=== PATIENT | male | born 1985 | race Caucasian/White ===

== ENCOUNTER 2017-12-12 11:29 | Emergency (ER) | payer SELFPAY ==
[2017-12-12 12:32] VITALS: BP 156/88
[2017-12-12] MEDS ORDERED: Bacitracin Oint 1 GM U/D Packet TOP ONE (13:14)
[2017-12-12] MEDS ORDERED: Lidocaine 1% 20 ML MDV INJECT ONE (13:14)
--- NOTE | 2017-12-12 13:14 | EDM.PDOC ---
ED HPI GENERAL MEDICAL PROBLEM - General Chief Complaint: Laceration Stated Complaint: RIGHT HAND CUT Time Seen by Provider: 12/12/17 13:13 Source of Information: Reports: Patient History Limitations: Reports: No Limitations - History of Present Illness INITIAL COMMENTS - FREE TEXT/NARRATIVE: HISTORY AND PHYSICAL: History of present illness: Patient is a 32-year-old male who presents to the emergency room today with complaints of a laceration to his right fifth knuckle. He is accompanied by law enforcement and there are mixed stories about how this laceration occurred. The law enforcement states that he bit his hand creating a laceration. Patient states he is unsure but thinks he punched a window. Currently in custody of law-enforcement. Unsure of last Tdap. Review of systems: As per history of present illness and below otherwise all systems reviewed and negative. Past medical history: As per history of present illness and as reviewed below otherwise noncontributory. Surgical history: As per history of present illness and as reviewed below otherwise noncontributory. Social history: No reported history of drug or alcohol abuse. Family history: As per history of present illness and as reviewed below otherwise noncontributory. Physical exam: General: Well developed and well nourished 32-year-old male. Alert and oriented. Appears in no acute distress HEENT: Atraumatic, normocephalic, pupils reactive, negative for conjunctival pallor or scleral icterus, mucous membranes moist, throat clear, neck supple, nontender, trachea midline. Lungs: Clear to auscultation, breath sounds equal bilaterally, chest nontender. Heart: S1S2, regular, negative for clicks, rubs, or JVD. Abdomen: Soft, nondistended, nontender. Negative for masses or hepatosplenomegaly. Negative for costovertebral tenderness. Pelvis: Stable nontender. Genitourinary: Deferred. Rectal: Deferred. Extremities/Skin: He moves all extremities per self without difficulty or deficits on 1 cm gaping laceration at the PIP joint of right 5th knuckle. No tendon involvement. Able to firmly grasp fist. Cap Refill less than 3 seconds. + CMS. He is negative for cords or calf pain. Neurovascular unremarkable. Neuro: Awake, alert, oriented. Cranial nerves II through XII unremarkable. Cerebellum unremarkable. Motor and sensory unremarkable throughout. Exam nonfocal. Diagnostics: Hand x-ray Therapeutics: Tdap, Lidocaine, Bacitracin ointment Impression: Hand Laceration Plan: 1. stitches out in 7-10 days. Please monitor for signs of infection. Keflex has been ordered prophylactically. 2. Tylenol and/or ibuprofen as needed for pain management. 3. return to the ED as needed and as discussed. Definitive disposition and diagnosis as appropriate pending reevaluation and review of above. Right Hand Pain Score (Numeric/FACES): 6 - Related Data Allergies Allergy/AdvReac Type Severity Reaction Status Date / Time No Known Allergies Allergy Verified 12/12/17 12:22 Home Meds: Home Meds Gabapentin [Neurontin] 1 tab PO DAILY 12/04/16 [History] QUEtiapine [SEROquel] 300 mg PO DAILY 12/04/16 [History] Sertraline [Zoloft] 1 tab PO BID 12/04/16 [History] Past Medical History - Past Health History Medical/Surgical History: Denies Medical/Surgical History HEENT History: Reports: None Psychiatric History: Reports: Anxiety, Depression - Infectious Disease History Infectious Disease History: Reports: Chicken Pox - Past Surgical History HEENT Surgical History: Reports: None Musculoskeletal Surgical History: Reports: Shoulder Surgery Social & Family History - Family History Family Medical History: Noncontributory - Tobacco Use Smoking Status *Q: Current Every Day Smoker Years of Tobacco use: 10 Packs/Tins Daily: 0.5 Used Tobacco, but Quit: No - Caffeine Use Caffeine Use: Reports: Coffee - Alcohol Use Days Per Week of Alcohol Use: 2 Number of Drinks Per Day: 2 Total Drinks Per Week: 4 - Recreational Drug Use Recreational Drug Use: No Drug Use in Last 12 Months: Yes Recreational Drug Type: Reports: Marijuana/Hashish Recreational Drug Use Frequency: Daily ED ROS GENERAL - Review of Systems Review Of Systems: ROS reveals no pertinent complaints other than HPI. ED EXAM, SKIN/RASH Exam: See Below (See dictation) ED SKIN PROCEDURES - Laceration/Wound Repair Left 5th digit, PIP knuckle Lac/Wound length In cm: 1 Appearance: Linear Anesthetic Type: Local Local Anesthetic Volume: 3cc Skin Prep: Chlorhexidine (Hibiciens), Saline, Sterile Drape Saline Irrigation (cc's): 50 Exploration/Debridement/Repair: Wound Explored, No Foreign Material Found Closed with: Sutures Suture Size: 4-0 # of Sutures: 3 Suture Type: Nylon, Simple Course - Vital Signs Last Recorded V/S: Last Vital Signs Temp 97.2 F 12/12/17 12:31 Pulse 110 H 12/12/17 12:31 Resp 18 12/12/17 12:31 BP 156/88 H 12/12/17 12:31 Pulse Ox 92 L 12/12/17 12:31 - Orders/Labs/Meds Meds: Medications Discontinued Medications Generic Name Dose Route Start Last Admin Trade Name Herber PRN Reason Stop Dose Admin Bacitracin 1 dose 12/12/17 13:14 Bacitracin Oint 1 Gm TOP 12/12/17 13:15 ONETIME ONE Lidocaine HCl 20 ml 12/12/17 13:14 Xylocaine 1% INJECT 12/12/17 13:15 ONETIME ONE Departure - Departure Time of Disposition: 14:10 Disposition: Home, Self-Care 01 Clinical Impression: Laceration - Discharge Information Instructions: Laceration Care, Adult, [id number] Forms: ED Department Discharge Additional Instructions: My general discharge The following information is given to patients seen in the emergency department who are being discharged to home. This information is to outline your options for follow-up care. We provide all patients seen in our emergency department with a follow-up referral. The need for follow-up, as well as the timing and circumstances, are variable depending upon the specifics of your emergency department visit. If you don't have a primary care physician on staff, we will provide you with a referral. We always advise you to contact your personal physician following an emergency department visit to inform them of the circumstance of the visit and for follow-up with them and/or the need for any referrals to a consulting specialist. The emergency department will also refer you to a specialist when appropriate. This referral assures that you have the opportunity for follow-up care with a specialist. All of these measure are taken in an effort to provide you with optimal care, which includes your follow-up. Under all circumstances we always encourage you to contact your private physician who remains a resource for coordinating your care. When calling for follow-up care, please make the office aware that this follow-up is from your recent emergency room visit. If for any reason you are refused follow-up, please contact the [facility] Emergency Department at and asked to speak to the emergency department charge nurse. [facility] [address] [place] [id number] 1. stitches out in 7-10 days. Please monitor for signs of infection. Keflex has been ordered prophylactically. 2. Tylenol and/or ibuprofen as needed for pain management. 3. return to the ED as needed and as discussed.
--- NOTE | 2017-12-12 13:49 | CR ---
EXAMINATION: Left and right hands HISTORY: Pain COMPARISON: None TECHNIQUE: 2 views bilaterally FINDINGS: There is no acute osseous abnormality, dislocation, or fracture. Bone mineralization and aron int spaces appear normal. Radiocarpal alignment is preserved. No focal soft tissue swelling. Subcorti ernie cyst noted within the right scaphoid. IMPRESSION: 1. Grossly unremarkable bilateral hands.
== END 2017-12-12 14:35 | disposition home or self-care (01) ==
LOC: MW.ED 11:29
DX: S61.411A Laceration without foreign body of right hand, initial encounter (principal); F32.9 Major depressive disorder, single episode, unspecified; F17.210 Nicotine dependence, cigarettes, uncomplicated; Z79.899 Other long term (current) drug therapy
CPT/HCPCS: 12001; 73120-26-LT; 73120-26-RT; 73120-LT; 73120-RT; 99283